=== PATIENT | male | born 1995 | race Two or more races ===

== ENCOUNTER 2021-05-27 23:13 | Emergency (ER) | payer SELFPAY ==
[~2021-05-27] VITALS: Ht 177.8 cm; Wt 124.0 kg
[2021-05-27 23:19] VITALS: BP 159/81
[2021-05-28] MEDS ORDERED: RABIES VACCINE /PF 2.5 UNITS IM-VACC STA (00:06)
[2021-05-28] MEDS ORDERED: BACITRACIN ZINC OINT 500U/GM, 0.9 GM ONE (00:19)
[2021-05-28] MEDS ORDERED: DIPH,PERTUSS(ACELL),TET VAC/PF 0.5 ML IM-VACC ONE (00:30)
[2021-05-28] MEDS ORDERED: RABIES IMMUNE GLOBULIN/PF 300 UNITS/ML,1ML IM ONE (00:30)
[2021-05-28] MEDS ORDERED: RABIES IMMUNE GLOBULIN/PF 150 UNITS/ML, 2ML IM ONE (01:00)
[2021-05-28] MEDS ORDERED: NEOSPORIN OINT. PKT 1 PACKET ONE (01:43)
--- NOTE | 2021-05-28 01:49 | NUR ---
Vaccines admin per dec. Immunoglobulin injected at the site; right forearm. Discharge instructions given. All questions and concerns addressed. Patient ambulatory with a steady gait. Belongings with patient.
== END 2021-05-28 01:51 | disposition home or self-care (01) ==
LOC: ED 05-28 00:02
DX: S51.852A Open bite of left forearm, initial encounter (principal); S61.552A Open bite of left wrist, initial encounter; L03.114 Cellulitis of left upper limb; W54.0XXA Bitten by dog, initial encounter; Y93.01 Activity, walking, marching and hiking; Y92.410 Unspecified street and highway as the place of occurrence of the external cause; Y99.8 Other external cause status
CPT/HCPCS: 90375; 90471; 90675; 90715; 96372